=== PATIENT | male | born 1985 | race Hispanic/Latino ===

== ENCOUNTER → 2023-05-05 | Outpatient (CLI) | payer OTHER, MEDICARE ==
[~2023-05-05] MED LIST: IOHEXOL 350 MG/ML 100ML INFUS..BTL IV ONE
== END | disposition home or self-care (01) ==
LOC: EDSTATUS 04-03 08:30 → RAH 08:27
PROVIDERS: ATTEND Internal Medicine Cardiovascular Disease
DX: I71.40 Abdominal aortic aneurysm, without rupture, unspecified (principal); I70.203 Unspecified atherosclerosis of native arteries of extremities, bilateral legs; Z89.612 Acquired absence of left leg above knee
CPT/HCPCS: 75635; Q9967

== ENCOUNTER → 2024-06-28 | Outpatient (CLI) | payer MEDICARE ==
[~2024-06-28] MED LIST changes: +IOHEXOL-350 50ML VIAL IV ONE; +IOHEXOL-350 75 ML VIAL IV ONE
--- NOTE | 2024-06-28 14:41 | HMCIMG ---
CT ANGIO ABD AORTA W RUNOFF HISTORY: Thoracic aortic aneurysm without rupture COMPARISON: 05/05/2023 TECHNIQUE: CT angiography of the abdomen and pelvis and bilateral lower extremities was obtained using angiographic technique with maximum intensity projection reconstruction images. Patient was given 150 cc of Omnipaque through intravenous route. Oral contrast was not given. FINDINGS: No pleural effusion is seen bilaterally. There is no evidence of parenchymal disease or pulmonary nodule of the visualized lower lungs. Degenerative changes of the thoracolumbar spine are present. The heart is not enlarged. Liver is enlarged measuring 18 cm. The liver, spleen, adrenal glands and pancreas are unremarkable. There is no evidence of hydronephrosis bilaterally. No evidence of renal stone is seen. Fecal material is seen in the colon. There are normal size retroperitoneal and mesenteric lymph nodes. No ascites is seen. Atherosclerotic changes are present. There is diffuse atherosclerotic disease. 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 The celiac, superior mesenteric and bilateral renal arteries are grossly patent. The visualized portion of the right iliac and femoral arterial systems are also grossly patent. Poor contrast opacification is noted of the right popliteal artery suspicious for occlusion. There are collateral flows noted at this level. The right anterior tibial, posterior tibial and peroneal arteries are not well opacified limiting evaluation. Findings are suspicious for high-grade stenosis in the right anterior tibial, posterior tibial and peroneal arteries.. Pelvic sidewalls are symmetric bilaterally. Bladder is well distended without wall thickening. IMPRESSION: 1. 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 2. Poor contrast opacification is noted of the right popliteal artery suspicious for occlusion. There are collateral flows noted at this level. The right anterior tibial, posterior tibial and peroneal arteries are not well opacified limiting evaluation. Findings are suspicious for high-grade stenosis in the right anterior tibial, posterior tibial and peroneal arteries.. CT was performed with one or more following dose reduction techniques: automated exposure control, adjustment of the mA and kv according to patient's size, or use of a iterative reconstruction technique.
== END | disposition home or self-care (01) ==
LOC: RAH 10:13
PROVIDERS: ATTEND Internal Medicine Cardiovascular Disease
DX: I71.20 Thoracic aortic aneurysm, without rupture, unspecified (principal); M47.815 Spondylosis without myelopathy or radiculopathy, thoracolumbar region; R16.0 Hepatomegaly, not elsewhere classified; I70.0 Atherosclerosis of aorta; I71.00 Dissection of unspecified site of aorta; I70.203 Unspecified atherosclerosis of native arteries of extremities, bilateral legs; Z89.612 Acquired absence of left leg above knee
CPT/HCPCS: 75635; Q9967 ×3

== ENCOUNTER → 2025-05-13 | Outpatient (CLI) | payer MEDICARE | END | disposition home or self-care (01) | LOC: WHH 12:52 | PROVIDERS: ATTEND Family Medicine | DX: S81.801A Unspecified open wound, right lower leg, initial encounter (principal); G62.9 Polyneuropathy, unspecified; Z87.891 Personal history of nicotine dependence; X58.XXXA Exposure to other specified factors, initial encounter; Y93.89 Activity, other specified; Y92.89 Other specified places as the place of occurrence of the external cause; Y99.8 Other external cause status | CPT/HCPCS: 93923 ==